=== PATIENT | female | born 1995 | race Two or more races ===

== ENCOUNTER → 2025-05-02 | Outpatient (CLI) | payer MEDICAID, SELFPAY ==
--- NOTE | 2025-05-02 10:36 | XR_ITS ---
Examination: Shoulder,left, 3 views Technique: Shoulder AP internal rotation, AP external rotation, Y view shoulder, 3 views Exam date and time :May 02, 2025 1038 hours INDICATIONS: Left shoulder pain beginning 2 years ago. FINDINGS: No shoulder fracture or dislocation No arthritic change. No AC joint separation IMPRESSION: Negative for osseous abnormality
== END | disposition home or self-care (01) ==
LOC: CDIM 10:22
PROVIDERS: PCP Nurse Practitioner Family; Referring Provider Nurse Practitioner Family; Visit Provider Nurse Practitioner Family
DX: M25.512 Pain in left shoulder (principal)
CPT/HCPCS: 73030

== ENCOUNTER → 2025-08-15 | Outpatient (CLI) | payer MEDICAID, SELFPAY ==
--- NOTE | 2025-08-15 15:00 | XR_ITS ---
MRI shoulder, left, without contrast. Date and time: August 15, 2025, 1612 hours, comparison April 01, 2013 INDICATIONS: Left shoulder pain beginning 2 years ago, decreased range of motion and limited abduction stiffness burning joint clicking Technique: Multiple axial, sagittal and coronal sections of the shoulder have been obtained. Siemens high-resolution 1.5 Ana MRI scanner is utilized. Axial fat-suppressed sections, TR 2350, TE 18 T2-weighted coronal fat-saturated images, TR 3500, TE 7100 T1-weighted coronal images, TR 500, TE 15 T2-weighted sagittal fat-saturated images, TR 3500, TE 57 T1-weighted sagittal sections, TR 504, TE 13. Findings: Supraspinatus tendon insertion is intact. Infraspinatus tendon insertion is intact. Subscapularis insertion is intact. Subscapularis bursa is not seen. Long head of the biceps is in the bicipital groove. No definite tear of the biceps superior labral anchor is seen. Retraction of the musculotendinous junction of the rotator cuff is not seen . Tendinosis pattern is not seen. Distance between the acromium and humeral head is 7.24 mm Atrophy of the supraspinatus muscle is mild . Atrophy of the infraspinatus muscle is not seen. Sagittal sections demonstrate a horizontal acromion. Acromioclavicular joint demonstrates mild osteoarthritis . Osacromiale is not identified. Fraying and irregularity anterior labral margins Bony glenoid fossa on the sagittal sections does not demonstrate osseous defect. Occult fracture or area of avascular necrosis is not seen. Acromioclavicular joint separation is not visible. Defect in the posterolateral margin of the humeral head is not seen Impression: Rotator cuff intact, negative for rotator cuff tendinosis Fraying and irregularity anterior labral margins
== END | disposition home or self-care (01) ==
PROVIDERS: PCP Nurse Practitioner Family; Referring Provider Nurse Practitioner Family; Visit Provider Nurse Practitioner Family
DX: M25.812 Other specified joint disorders, left shoulder (principal)
CPT/HCPCS: 73221